=== PATIENT | female | born 1960 | race Caucasian/White ===

== ENCOUNTER 2018-06-21 11:21 | Emergency (ER) | payer OTHER ==
[~2018-06-21] VITALS: Ht 160 cm; Wt 81.7 kg
[~2018-06-21 11:21] MED LIST: CHOL10002 PO; CYCL10 PO; HYDACE5 PO; LEVSOD75 PO; NORT10 PO; OMEP40CA12 PO; ONDA4 PO; Ultram50 MG PO; [UNRECOGNIZED DRUG - REMARK]
[2018-06-21] MEDS ORDERED: Percocet 5-3251 EACH PO (12:54)
== END 2018-06-21 13:13 | disposition home or self-care (01) ==
LOC: ER 11:21
DX: S92.061D Displaced intraarticular fracture of right calcaneus, subsequent encounter for fracture with routine healing (principal); S82.301D Unspecified fracture of lower end of right tibia, subsequent encounter for closed fracture with routine healing; V49.9XXD Car occupant (driver) (passenger) injured in unspecified traffic accident, subsequent encounter; Z79.899 Other long term (current) drug therapy; E03.9 Hypothyroidism, unspecified; Z87.891 Personal history of nicotine dependence
CPT/HCPCS: 73620; 99283-25

== ENCOUNTER 2018-07-10 14:57 | Emergency (ER) | payer OTHER ==
[~2018-07-10] VITALS: Ht 172.7 cm; Wt 86.2 kg
[~2018-07-10 14:57] MED LIST changes: +Percocet 5-3251 EACH PO
[2018-07-10] MEDS ORDERED: HYDR1TAB94 PO (16:12)
== END 2018-07-10 16:21 | disposition home or self-care (01) ==
LOC: ER 14:57
DX: Z48.00 Encounter for change or removal of nonsurgical wound dressing (principal); Z79.899 Other long term (current) drug therapy; E03.9 Hypothyroidism, unspecified; Z87.891 Personal history of nicotine dependence
CPT/HCPCS: 82947; 99283

== ENCOUNTER 2018-09-30 19:55 | Emergency (ER) | payer OTHER ==
[~2018-09-30] VITALS: Ht 162.6 cm; Wt 68.0 kg
[~2018-09-30 19:55] MED LIST changes: +HYDR1TAB94 PO
[2018-09-30] MEDS ORDERED: CEPH500 PO (22:23)
[2018-09-30] MEDS ORDERED: Bactrim 400-801 EACH PO (22:23)
== END 2018-09-30 23:23 | disposition home or self-care (01) ==
LOC: ER 19:55
DX: L97.513 Non-pressure chronic ulcer of other part of right foot with necrosis of muscle (principal); E03.9 Hypothyroidism, unspecified; Z87.891 Personal history of nicotine dependence
CPT/HCPCS: 73620; 99284-25; A9270-GY

== ENCOUNTER → 2018-11-01 | Outpatient (CLI) | payer OTHER ==
[~2018-11-01] MED LIST changes: +Bactrim 400-801 EACH PO; +CEPH500 PO
== END | disposition home or self-care (01) ==
LOC: LAB SHORT 11:15 → LAB SRC 11:15
DX: S91.301D Unspecified open wound, right foot, subsequent encounter (principal)
CPT/HCPCS: 87070; 87077; 87186; 87205

== ENCOUNTER 2018-12-09 01:08 | Inpatient (IN) | payer OTHER ==
[~2018-12-09] VITALS: Ht 160 cm; Wt 90.1 kg
[2018-12-09 02:24] LABS: BASOPHILS ABSOLUTE AUTO 0.07 K/mm3 (0.00-0.23); BASOPHILS PERCENT AUTO 1 % (0-2); EOSINOPHILS ABSOLUTE AUTO 0.25 K/mm3 (0.00-0.68); EOSINOPHILS PERCENT AUTO 3 % (0-6); Hematocrit 42.1 % (33.0-51.0); Hemoglobin 14.1 g/dL (11.5-16.0); IMMATURE GRAN ABSOLUTE AUTO 0.02 K/mm3 (0.00-0.10); IMMATURE GRAN PERCENT AUTO 0 % (0-1); LYMPHOCYTES ABSOLUTE AUTO 3.04 K/mm3 (0.84-5.20); LYMPHOCYTES PERCENT AUTO 40 % (21-46); MONOCYTES ABSOLUTE AUTO 0.43 K/mm3 (0.16-1.47); MONOCYTES PERCENT AUTO 6 % (4-13); Mean Corpuscular HGB 30.1 pg (26.0-34.0); Mean Corpuscular HGB Conc 33.5 g/dL (31.5-36.5); Mean Corpuscular Volume 90 fL (80-100); Mean Platelet Volume 8.5 fL (9.1-12.4); NEUTROPHILS ABSOLUTE AUTO 3.85 K/mm3 (1.96-9.15); NEUTROPHILS PERCENT AUTO 50 % (41-73); Platelet Count 309 K/mm3 (150-400); RDW Coefficient Variation 14.4 % (11.7-14.2); RDW Standard Deviation 46.4 fL (35.1-46.3); Red Blood Cell Count 4.68 M/mm3 (3.80-5.20); White Blood Cell Count 7.66 K/mm3 (4.00-11.30)
[2018-12-09 02:41] LABS: Alanine Aminotransfer (ALT/SGP 51 U/L (12-78); Albumin, Blood 3.5 g/dL (3.4-5.0); Albumin/Globulin Ratio 0.8 (0.8-1.8); Alk Phos 176 U/L (50-136); Anion Gap 7 mmol/L (6-16); Aspartate Aminotrans (AST/SGOT 30 U/L (12-37); Bilirubin, Total 0.2 mg/dL (0.1-1.0); Blood Urea Nitrogen 11 mg/dL (8-24); Bun/Creatinine Ratio 17.1 (12.0-20.0); CO2, Blood 25 mmol/L (21-32); Calcium, Blood 9.1 mg/dL (8.5-10.1); Chloride, Blood 107 mmol/L (98-108); Creatinine, Blood 0.64 mg/dL (0.40-1.00); Globulin, Blood 4.6 g/dL (2.2-4.0); Glomerular Filtration Rate >60 (60-); Glucose, Blood 98 mg/dL (70-99); Sodium, Blood 139 mmol/L (136-145); Total Protein, Blood 8.1 g/dL (6.4-8.2)
[2018-12-09 06:07] LABS: C-REACTIVE PROTEIN, EXT RANGE <0.290 mg/dL (0.000-0.300)
--- NOTE | 2018-12-09 16:51 | NUR ---
PT IS A/OX3, PLEASANT AND COOPERATIVE, THE PT IS UP WITH MINIMAL ASSIST TO THE BATHROOM, THE PT HAS BEEN BEDREST FOR MOST OF THE DAY WITH HER RIGHT FOOT ELEVATED, DR. ELIZABETH CONSULTED ON THE PT AND VERBALY ORDERED THE PTS WOUND TO BE CLEANED AND DRESSED BID AND PRN, THE PT WAS MEDICATED FOR PAIN X2 SO FAR TODAY, THE PT APPEARS TO BE BREATHING EASILY ON RA, PICTURES WERE ALLOWED BY THE PT AND TAKEN, AT THE TIME OF THE INTIAL ASSESSMENT THE PT HAD MAGGOTS INSIDE OF THE WOUND, THE DRESSING WAS CLEANED AND REAPPLIED X2 TODAY, MANY MAGGOTS POSSIBLE WERE REMOVED, CALL LIGHT IN REACH WILL CONTINUE TO MONITOR AND ASSESS FOR CHANGES
--- NOTE | 2018-12-09 17:18 | NUR ---
CALLED REPORT TO [facility], PT IS TO BE TRANSPORTED WITHIN THE NEXT 1-2 HRS
--- NOTE | 2018-12-09 18:27 | NUR ---
PT TRANSFERED THE PT WAS TRANSFERED TO [facility] IN [place] [facility], PT IS A/OX3, PT APPEARED TO BE BREATHING EASILY ON RA, THE PT WAS MEDICATED FOR PAIN JUST PRIOR TO TRANSFER, REPORT WAS CALLED TO TERRA WOODSON AT [facility], FAMILY IS AWARE OF THE TRANSFER
== END 2018-12-09 18:17 | disposition short-term general hospital (02) | DRG 540 ==
LOC: ER 01:08 → MEDS 05:03 → ER 06:02 → MEDS 06:02 → ENPENDDIS 10:56 → MEDS 18:17
PROVIDERS: Physician Assistant; ADMIT Hospitalist
DX: M86.9 Osteomyelitis, unspecified (principal); T81.42XA Infection following a procedure, deep incisional surgical site, initial encounter; E03.9 Hypothyroidism, unspecified; G89.29 Other chronic pain; Z87.891 Personal history of nicotine dependence; M54.9 Dorsalgia, unspecified; E66.9 Obesity, unspecified; Z68.32 Body mass index [BMI] 32.0-32.9, adult; K21.9 Gastro-esophageal reflux disease without esophagitis; L40.9 Psoriasis, unspecified; L30.8 Other specified dermatitis; F19.10 Other psychoactive substance abuse, uncomplicated; B87.9 Myiasis, unspecified
CPT/HCPCS: 36415; 73701; 80053; 83605; 84145; 84443; 85025; 85651; 86140; 87040; 96365-59; 99284-25; A9270; J1650; J2543; J3010; J3370; J7030; J7050; Q9967

== ENCOUNTER 2019-04-19 14:07 | Inpatient (IN) | payer OTHER ==
[~2019-04-19] VITALS: Ht 160 cm; Wt 94.0 kg
[2019-04-19 17:35] LABS: BASOPHILS ABSOLUTE AUTO 0.06 K/mm3 (0.00-0.23); BASOPHILS PERCENT AUTO 1 % (0-2); EOSINOPHILS ABSOLUTE AUTO 0.12 K/mm3 (0.00-0.68); EOSINOPHILS PERCENT AUTO 1 % (0-6); Hematocrit 44.2 % (33.0-51.0); Hemoglobin 14.9 g/dL (11.5-16.0); IMMATURE GRAN ABSOLUTE AUTO 0.03 K/mm3 (0.00-0.10); IMMATURE GRAN PERCENT AUTO 0 % (0-1); LYMPHOCYTES ABSOLUTE AUTO 1.74 K/mm3 (0.84-5.20); LYMPHOCYTES PERCENT AUTO 18 % (21-46); MONOCYTES ABSOLUTE AUTO 0.66 K/mm3 (0.16-1.47); MONOCYTES PERCENT AUTO 7 % (4-13); Mean Corpuscular HGB 31.1 pg (26.0-34.0); Mean Corpuscular HGB Conc 33.7 g/dL (31.5-36.5); Mean Corpuscular Volume 92 fL (80-100); Mean Platelet Volume 9.1 fL (9.1-12.4); NEUTROPHILS ABSOLUTE AUTO 7.34 K/mm3 (1.96-9.15); NEUTROPHILS PERCENT AUTO 74 % (41-73); Platelet Count 269 K/mm3 (150-400); RDW Coefficient Variation 12.8 % (11.7-14.2); RDW Standard Deviation 43.8 fL (35.1-46.3); Red Blood Cell Count 4.79 M/mm3 (3.80-5.20); White Blood Cell Count 9.95 K/mm3 (4.00-11.30)
[2019-04-19 17:52] LABS: Alanine Aminotransfer (ALT/SGP 63 U/L (12-78); Albumin, Blood 3.5 g/dL (3.4-5.0); Albumin/Globulin Ratio 0.7 (0.8-1.8); Alk Phos 150 U/L (50-136); Anion Gap 11 mmol/L (6-16); Aspartate Aminotrans (AST/SGOT 33 U/L (12-37); Bilirubin, Total 0.8 mg/dL (0.1-1.0); Blood Urea Nitrogen 12 mg/dL (8-24); Bun/Creatinine Ratio 16.5 (12.0-20.0); CO2, Blood 21 mmol/L (21-32); Calcium, Blood 9.5 mg/dL (8.5-10.1); Chloride, Blood 106 mmol/L (98-108); Creatinine, Blood 0.73 mg/dL (0.40-1.00); Globulin, Blood 4.9 g/dL (2.2-4.0); Glomerular Filtration Rate >60 (60-); Glucose, Blood 116 mg/dL (70-99); Potassium, Blood 3.8 mmol/L (3.5-5.5); Sodium, Blood 138 mmol/L (136-145); Total Protein, Blood 8.4 g/dL (6.4-8.2)
--- NOTE | 2019-04-19 23:13 | NUR ---
Pt arrived to floor around 2029. Patient transfered from bed to bed with 4 assist and slide sheet. Patient complaining of severe pain to R hip. Medicated per orders. VSS. CMS to R foot intact. IVF infusing. Awaiting urine collection. patient given call light, resting comfortably at this time.
[2019-04-20 01:32] LABS: Source, Urine Voided
[2019-04-20 01:35] LABS: Bilirubin, Urine Neg (Neg); Blood, Urine 1+ (Neg); Glucose Qualitative, Urine Neg (Neg); Ketones, Urine 3+ (Neg); Leukocyte Esterase, Urine 3+ (Neg); Nitrite, Urine Neg (Neg); Protein, Urine Neg (Neg); Urobilinogen, Urine NORM (Normal)
[2019-04-20 01:36] LABS: Appearance, Urine Clear (Clear); Color, Urine Yellow (P-Yellow)
[2019-04-20 01:42] LABS: Bacteria Many /hpf; Red Blood Cells, Urine 0-2 /hpf (0-2); Squamous Epithelial Cells Mod /hpf (Few)
[2019-04-20 04:50] LABS: BASOPHILS ABSOLUTE AUTO 0.05 K/mm3 (0.00-0.23); BASOPHILS PERCENT AUTO 1 % (0-2); EOSINOPHILS ABSOLUTE AUTO 0.17 K/mm3 (0.00-0.68); EOSINOPHILS PERCENT AUTO 2 % (0-6); Hematocrit 40.5 % (33.0-51.0); Hemoglobin 13.4 g/dL (11.5-16.0); IMMATURE GRAN ABSOLUTE AUTO 0.02 K/mm3 (0.00-0.10); IMMATURE GRAN PERCENT AUTO 0 % (0-1); LYMPHOCYTES ABSOLUTE AUTO 1.61 K/mm3 (0.84-5.20); LYMPHOCYTES PERCENT AUTO 19 % (21-46); MONOCYTES PERCENT AUTO 8 % (4-13); Mean Corpuscular HGB 30.5 pg (26.0-34.0); Mean Corpuscular HGB Conc 33.1 g/dL (31.5-36.5); Mean Corpuscular Volume 92 fL (80-100); Mean Platelet Volume 9.1 fL (9.1-12.4); NEUTROPHILS ABSOLUTE AUTO 6.08 K/mm3 (1.96-9.15); NEUTROPHILS PERCENT AUTO 70 % (41-73); Platelet Count 246 K/mm3 (150-400); RDW Coefficient Variation 12.9 % (11.7-14.2); RDW Standard Deviation 43.7 fL (35.1-46.3); Red Blood Cell Count 4.39 M/mm3 (3.80-5.20); White Blood Cell Count 8.63 K/mm3 (4.00-11.30)
[2019-04-20 05:13] LABS: Anion Gap 9 mmol/L (6-16); Blood Urea Nitrogen 11 mg/dL (8-24); Bun/Creatinine Ratio 16.1 (12.0-20.0); CO2, Blood 22 mmol/L (21-32); Calcium, Blood 8.6 mg/dL (8.5-10.1); Chloride, Blood 108 mmol/L (98-108); Creatinine, Blood 0.69 mg/dL (0.40-1.00); Glomerular Filtration Rate >60 (60-); Glucose, Blood 105 mg/dL (70-99); Sodium, Blood 139 mmol/L (136-145)
--- NOTE | 2019-04-20 16:15 | NUR ---
patient given iv fentanyl transferred to cart and transported to radiology fo CT and xrays
--- NOTE | 2019-04-20 17:43 | NUR ---
1650 return to room returned to room from radiology
--- NOTE | 2019-04-20 18:07 | NUR ---
SUMMARY PATIENT HAS SLEPT MUCH OF SHIFT, AWAKENS EASILY TO VERBAL STIMULI. WHEN AWAKE PATIENT RPORTS LEG SPASMS TO RIGHT HIP AND PAIN 4-5/10. PATIENT AWARE OF NPO AFTER MIDNITE FOR POSSIBLE SURGERY TOMORROW. PATIENT CONTINUES WITH SLIGHT NUMBNESS TO BILAT LOWER LEGS WHICH WAS PRESENT PRIOR TO SURGERY AND HAS NOT CHANGED IN CHARACTER
[2019-04-21 04:34] LABS: BASOPHILS ABSOLUTE AUTO 0.04 K/mm3 (0.00-0.23); BASOPHILS PERCENT AUTO 1 % (0-2); EOSINOPHILS PERCENT AUTO 3 % (0-6); Hemoglobin 12.3 g/dL (11.5-16.0); IMMATURE GRAN ABSOLUTE AUTO 0.02 K/mm3 (0.00-0.10); IMMATURE GRAN PERCENT AUTO 0 % (0-1); LYMPHOCYTES ABSOLUTE AUTO 1.56 K/mm3 (0.84-5.20); LYMPHOCYTES PERCENT AUTO 24 % (21-46); MONOCYTES PERCENT AUTO 9 % (4-13); Mean Corpuscular HGB 30.5 pg (26.0-34.0); Mean Corpuscular HGB Conc 33.2 g/dL (31.5-36.5); Mean Corpuscular Volume 92 fL (80-100); NEUTROPHILS ABSOLUTE AUTO 4.15 K/mm3 (1.96-9.15); NEUTROPHILS PERCENT AUTO 63 % (41-73); Platelet Count 237 K/mm3 (150-400); RDW Coefficient Variation 12.6 % (11.7-14.2); RDW Standard Deviation 42.5 fL (35.1-46.3); Red Blood Cell Count 4.03 M/mm3 (3.80-5.20); White Blood Cell Count 6.57 K/mm3 (4.00-11.30)
--- NOTE | 2019-04-21 07:34 | NUR ---
PT AAOX4. VSS. CMS INTACT. PAIN MANAGED WITH MEDICATIONS AND REPOSITIONING. ONTO BEDPAN TO VOID. IVF INFUSING WELL. NPO SINCE MIDNIGHT.
--- NOTE | 2019-04-21 10:35 | NUR ---
NOTIFIED DR HEMPHILL OF DR MANZANO'S WISH TO TRANSFER PT TO [facility]. DR MANZANO SPOKE TO DR RUDOLPH WHO WISHES TO DO A HOSPITALIST TO HOSPITALIST TRANSFER WITH PLAN TO CONSULT AND DO SURGERY TOMORROW.
--- NOTE | 2019-04-21 17:37 | NUR ---
SUMMARY PT GOING TO ROOM 6101 AT [facility]. REPORT CALLED TO [facility] @ [phone]. AWAITING TRANSPORT.
--- NOTE | 2019-04-21 18:09 | NUR ---
PT LEFT UNIT ON [facility] BY TRANSPORT.
== END 2019-04-21 18:20 | disposition short-term general hospital (02) | DRG 536 ==
LOC: ER 14:07 → SURS 18:13
PROVIDERS: Physician Assistant; ADMIT Family Medicine
DX: S72.001A Fracture of unspecified part of neck of right femur, initial encounter for closed fracture (principal); N39.0 Urinary tract infection, site not specified; E03.9 Hypothyroidism, unspecified; K21.9 Gastro-esophageal reflux disease without esophagitis; G89.29 Other chronic pain; M54.9 Dorsalgia, unspecified; E66.9 Obesity, unspecified; L40.9 Psoriasis, unspecified; Z59.0 Homelessness; Z87.891 Personal history of nicotine dependence; Z68.31 Body mass index [BMI] 31.0-31.9, adult
CPT/HCPCS: 36415; 71045; 72040; 72100; 73502; 73552; 73590; 73620; 73700; 80048; 80053; 81001; 84443; 85025; 85610; 87086; 93005; 93010; 96374; 96375; 99284-25; 99285-25; A9270-GY; J1644; J2405; J3010; J7030